=== PATIENT | female | born 1995 | race Caucasian/White ===

== ENCOUNTER 2017-08-25 01:35 | Emergency (ER) | payer BC ==
[2017-08-25 04:03] VITALS: BP 151/83
== END 2017-08-25 04:03 | disposition home or self-care (01) ==
LOC: ED 01:35
DX: S86.911A Strain of unspecified muscle(s) and tendon(s) at lower leg level, right leg, initial encounter (principal); W01.0XXA Fall on same level from slipping, tripping and stumbling without subsequent striking against object, initial encounter; Y93.41 Activity, dancing; Y92.89 Other specified places as the place of occurrence of the external cause; Y99.8 Other external cause status